=== PATIENT | male | born 1970 | race Caucasian/White ===

== ENCOUNTER 2020-08-24 14:56 | Outpatient (REF) | payer OTHER, SELFPAY ==
[2020-08-24 16:25] LABS: MANUAL DIFF FLAG NO
[2020-08-24 16:30] LABS: Basophils Percent Auto 0.3 % (0-2); Eosinophils Percent Auto 0.4 % (0-4); Hematocrit 47.4 % (42-52); Hemoglobin 16.7 g/dl (14.0-18.0); Imm Gran Abs Auto 0.04 X10*3/uL (0.00-0.03); Imm Gran Pct Auto 0.4 % (0.0-0.4); Lymphocytes Absolute Auto 2.1 X10*3/uL (1.2-4.9); Lymphocytes Percent Auto 21.5 % (20-40); Mean Corpuscular HGB Conc 35.2 g/dl (31.0-36.0); Mean Corpuscular Hemoglobin 36.7 pg (27.0-33.0); Mean Corpuscular Volume 104.2 fL (80-98); Mean Platelet Volume 10.6 fL (9.4-12.4); Monocytes Absolute Auto 0.5 X10*3/uL (0.1-1.2); Monocytes Percent Auto 5.2 % (2-11); Neutrophils Absolute Auto 7.2 X10*3/uL (2.0-8.3); Neutrophils Percent Auto 72.2 % (45-73); Platelet Count 239 X10*3/uL (160-400); Red Blood Count 4.55 X10*6/uL (4.60-5.80); Red Cell Distribution Width 12.7 % (11.0-16.0)
[2020-08-25 16:11] LABS: Absolute CD3 Count 1979 cells/uL (840-3060); Absolute CD4 Count 678 cells/uL (490-1740); Absolute CD8 Count 1299 cells/uL (180-1170); Absolute Lymphocytes 2258 cells/uL (850-3900); CD4 CD8 Ratio 0.52 (0.86-5.00); Percent CD3 Cells 88 % (57-85); Percent CD4 Cells 30 % (30-61); Percent CD8 Cells 58 % (12-42)
[2020-08-26 15:42] LABS: HIV RNA PCR Qn Copies <20 NOT DETECTED copies/mL (NOT DETECTED); HIV RNA PCR Qn Log Copies <1.30 NOT DETECTED (NOT DETECTED)
== END 2020-08-24 14:57 | disposition home or self-care (01) ==
LOC: HO.LAB 14:56
PROVIDERS: Visit Provider Internal Medicine Infectious Disease
DX: B20 Human immunodeficiency virus [HIV] disease (principal)
CPT/HCPCS: 36415; 85025; 86359; 86360; 87536

== ENCOUNTER 2020-11-07 16:57 | Outpatient (REF) | payer OTHER, SELFPAY ==
[2020-11-07 18:11] LABS: Cholesterol 120 mg/dL; HDL Cholesterol 40 mg/dL; LDL Cholesterol Calculated 51 mg/dl; Triglycerides 148 mg/dL
[2020-11-07 18:31] LABS: SARS COV2 IgG Negative (Negative)
[2020-11-07 18:39] LABS: Vitamin B12 457 pg/mL (200-900)
[2020-11-08 03:56] LABS: Estimated Average Glucose 97 mg/dL
== END 2020-11-07 16:58 | disposition home or self-care (01) ==
LOC: HO.LAB 16:57
PROVIDERS: PCP Family Medicine; Visit Provider Family Medicine
DX: B20 Human immunodeficiency virus [HIV] disease (principal); I25.10 Atherosclerotic heart disease of native coronary artery without angina pectoris; Z87.09 Personal history of other diseases of the respiratory system
CPT/HCPCS: 80061; 82607; 83036; 86769

== ENCOUNTER 2022-05-18 14:42 | Outpatient (REF) | payer OTHER, SELFPAY ==
[2022-05-18 15:16] LABS: MANUAL DIFF FLAG NO
[2022-05-18 15:32] LABS: Basophils Percent Auto 0.7 % (0-2); Eosinophils Percent Auto 0.5 % (0-4); Hematocrit 39.4 % (42.0-52.0); Hemoglobin 14.5 g/dl (14.0-18.0); Imm Gran Abs Auto 0.02 X10*3/uL (0.00-0.03); Imm Gran Pct Auto 0.3 % (0.0-0.4); Lymphocytes Absolute Auto 1.9 X10*3/uL (1.2-4.9); Lymphocytes Percent Auto 32.2 % (20-40); Mean Corpuscular HGB Conc 36.8 g/dl (31.0-36.0); Mean Corpuscular Hemoglobin 36.7 pg (27.0-33.0); Mean Corpuscular Volume 99.7 fL (80.0-98.0); Mean Platelet Volume 9.8 fL (9.4-12.4); Monocytes Absolute Auto 0.4 X10*3/uL (0.1-1.2); Monocytes Percent Auto 6.2 % (2-11); Neutrophils Absolute Auto 3.6 x10*3/uL (2.0-8.3); Neutrophils Percent Auto 60.1 % (45-73); Platelet Count 254 X10*3/uL (160-400); Red Blood Count 3.95 X10*6/uL (4.60-5.80); Red Cell Distribution Width 13.2 % (11.0-16.0)
[2022-05-18 16:02] LABS: Alanine Aminotransferase 29 U/L (0-40); Albumin Level 4.4 g/dL (3.5-5.0); Alkaline Phosphatase 94 U/L (39-117); Anion Gap 12 (12-20); Aspartate Amino Transferase 32 U/L (5-37); Blood Urea Nitrogen 12 mg/dL (9-16); Calcium 9.1 mg/dL (8.4-10.2); Carbon Dioxide 29 mmol/L (22-29); Chloride 102 mmol/L (96-108); Cholesterol 114 mg/dL; Estimated Glomerular Filt Rate > 60; Glucose Random 103 mg/dL (60-115); HDL Cholesterol 49 mg/dL; LDL Cholesterol Calculated 37 mg/dl; Potassium 3.9 mmol/L (3.3-5.1); Sodium 139 mmol/L (135-145); Total Protein 7.3 g/dL (6.5-8.0); Triglycerides 142 mg/dL
[2022-05-18 16:25] LABS: Syphilis Screen Nonreactive (Nonreactive)
[2022-05-18 16:29] LABS: Estimated Average Glucose 94 mg/dL; Hemoglobin A1C 115.6824 umol/L; Hemoglobin A1c % 4.9 %
[2022-05-18 17:08] LABS: Appearance Urine CLEAR; Color Urine YELLOW; Glucose Urine UA NEG (NEG); Leukocyte Esterase Urine NEG (NEG); Nitrite Urine NEG (NEG); Specific Gravity - Urine >= 1.030 (1.005-1.025); Urine Blood NEG (NEG); Urine Ketones NEG (NEG); Urine Protein TRACE MG/DL (NEG-TRACE)
[2022-05-19 04:32] LABS: CT PCR NOT DETECTED (Not Detect.); NG PCR NOT DETECTED (Not Detect.)
[2022-05-21 07:49] LABS: ~HepC Num1 0.08 S/CO (0.00-0.79); ~Hepatitis C Antibody Nonreactive (Nonreactive)
[2022-05-21 13:52] LABS: TS Negative Control Passed; TS Panel A 0; TS Panel B 0; TS Positive Control Passed; TSpotTB Negative (Negative)
[2022-05-22 13:26] LABS: HIV RNA PCR Qn Copies NOT DETECTED copies/mL (NOT DETECTED); HIV RNA PCR Qn Log Copies NOT DETECTED (NOT DETECTED)
== END 2022-05-18 14:43 | disposition home or self-care (01) ==
LOC: HO.LAB 14:42
PROVIDERS: Absent Provider Nurse Practitioner Family; PCP Nurse Practitioner; Visit Provider Internal Medicine
DX: B20 Human immunodeficiency virus [HIV] disease (principal); I25.10 Atherosclerotic heart disease of native coronary artery without angina pectoris
CPT/HCPCS: 80053; 80061; 81003; 83036; 85025; 86481; 86780; 86803; 87491; 87536; 87591

== ENCOUNTER 2023-07-30 15:50 | Outpatient (AMB) | payer OTHER, SELFPAY ==
--- NOTE | 2023-07-30 16:16 | AM.OFFWIN_ITS ---
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 [phone] Intake Note: pt is here for c/o mouth infection, right side of face is swollen Patient Tobacco Use Status: Current someday Tobacco user Allergies bee pollen [BEE STINGS] Allergy (Unknown, Verified 08/03/23 08:25) UNKNOWN ibuprofen [IBUPROFEN] Allergy (Unknown, Verified 08/03/23 08:25) UNK Medication List - Last Reconciled 08/03/23 by Juve Boucher MD aspirin 81 mg PO DAILY atorvastatin 80 mg PO DAILY vpdhnssot-nhzzhbeo-tgciplf ala 50-200-25 mg (Biktarvy) 1 tab PO DAILY carvedilol 12.5 mg PO BID cephalexin 500 mg PO BID omeprazole 20 mg PO DAILY sacubitril-valsartan 49-51 mg (Entresto) 1 tab PO BID Do you need a note to return to daycare/school/sports/work: Yes 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 Patient is having a painful lesion on his cheek and mouth. He has very poor oral hygiene. He is having difficulty swallowing because of the pain. Patient is also HIV positive and his viral count is negligible. PFSH Social History Patient Tobacco Use Status: Current someday Tobacco user Physical Exam Vital Signs: Last Vital Signs Temp 97.9 F 07/30/23 16:24 Pulse 72 07/30/23 16:24 BP 140/78 H 07/30/23 16:24 Pulse Ox 98 07/30/23 16:24 Const General: cooperative and healthy appearing Nutritional Appearance: well nourished Orientation/consciousness: patient oriented x3 Limitations: no limitations HEENT Head: Yes normal to inspection Eyes General: appearance normal, both eyes and all related structures Neck Neck: Yes normal visual inspection Chest Chest palpation & inspection: normal palpation of entire chest wall Resp Effort & Inspection: normal respiratory effort Skin Other: Face: Right side of his cheek is swollen and tender to touch. Oral cavity: Right side of the gum is swollen and tender. Neuro General: patient oriented x3 Assessment & Plan Assessment & Plan (1) Cellulitis, face: Code(s): L03.211 - Cellulitis of face Plan: Antibiotics called in. If symptoms do not improve to follow-up here. Medications: New cephalexin 500 mg PO BID 14 caps 0RF Coding Level of Care Code New Pt Level 3 (26627) Diagnoses Cellulitis, face L03.211
[2023-07-30 16:24] VITALS: BP 140/78; PULSE 72; TEMP 36.6; O2SAT 98
== END 2023-07-30 16:53 | disposition home or self-care (01) ==
PROVIDERS: PCP Nurse Practitioner; Visit Provider Internal Medicine
DX: L03.211 Cellulitis of face (principal)
CPT/HCPCS: 99203

== ENCOUNTER 2023-12-05 14:19 | Outpatient (REF) | payer OTHER, SELFPAY ==
[2023-12-05 14:57] LABS: MANUAL DIFF FLAG NO
[2023-12-05 15:33] LABS: Basophils Absolute Auto 0.1 X10*3/uL (0.0-0.2); Eosinophils Absolute Auto 0.1 X10*3/uL (0.0-0.4); Hematocrit 47.8 % (42.0-52.0); Hemoglobin 17.7 g/dl (14.0-18.0); Imm Gran Abs Auto 0.02 X10*3/uL (0.00-0.03); Imm Gran Pct Auto 0.3 % (0.0-0.4); Lymphocytes Absolute Auto 1.7 X10*3/uL (1.2-4.9); Lymphocytes Percent Auto 27.6 % (20-40); Mean Corpuscular Hemoglobin 38.2 pg (27.0-33.0); Mean Corpuscular Volume 103.2 fL (80.0-98.0); Mean Platelet Volume 9.9 fL (9.4-12.4); Monocytes Absolute Auto 0.4 X10*3/uL (0.1-1.2); Monocytes Percent Auto 6.1 % (2-11); Neutrophils Absolute Auto 3.9 x10*3/uL (2.0-8.3); Platelet Count 269 X10*3/uL (160-400); Red Blood Count 4.63 X10*6/uL (4.60-5.80); Red Cell Distribution Width 15.1 % (11.0-16.0)
[2023-12-05 15:48] LABS: Estimated Average Glucose 88 mg/dL; Hemoglobin A1c % 4.7 % (<6.0)
[2023-12-05 16:04] LABS: Anion Gap 13 (12-20); Blood Urea Nitrogen 10 mg/dL (9-16); Calcium 9.5 mg/dL (8.4-10.2); Carbon Dioxide 26 mmol/L (22-29); Chloride 106 mmol/L (96-108); Cholesterol 172 mg/dL (<200); Estimated Glomerular Filt Rate > 60; Glucose Random 113 mg/dL (60-115); HDL Cholesterol 38 mg/dL (>40); LDL Cholesterol Calculated 87 mg/dL (<100); Potassium 3.2 mmol/L (3.3-5.1); Sodium 142 mmol/L (135-145); Triglycerides 239 mg/dL (<150)
[2023-12-05 16:07] LABS: Alanine Aminotransferase 32 U/L (0-40); Albumin Level 4.1 g/dL (3.5-5.0); Alkaline Phosphatase 86 U/L (39-117); Anion Gap 13 (12-20); Aspartate Amino Transferase 26 U/L (5-37); Bilirubin Total 1.1 mg/dL (0.0-1.0); Blood Urea Nitrogen 10 mg/dL (9-16); Calcium 9.6 mg/dL (8.4-10.2); Carbon Dioxide 27 mmol/L (22-29); Chloride 105 mmol/L (96-108); Cholesterol 178 mg/dL (<200); Estimated Glomerular Filt Rate > 60; Glucose Random 112 mg/dL (60-115); HDL Cholesterol 38 mg/dL (>40); LDL Cholesterol Calculated 92 mg/dL (<100); Potassium 3.1 mmol/L (3.3-5.1); Sodium 142 mmol/L (135-145); Total Protein 7.4 g/dL (6.5-8.0); Triglycerides 240 mg/dL (<150)
[2023-12-05 16:58] LABS: Reflex LDLD? No
[2023-12-06 07:32] LABS: ~HepC Num1 0.08 S/CO (0.00-0.79); ~Hepatitis C Antibody Nonreactive (Nonreactive)
[2023-12-06 10:33] LABS: Absolute CD3 Count 1559 cells/uL (840-3060); Absolute CD4 Count 634 cells/uL (490-1740); Absolute CD8 Count 929 cells/uL (180-1170); Absolute Lymphocytes 1730 cells/uL (850-3900); CD4 CD8 Ratio 0.68 (0.86-5.00); Percent CD3 Cells 90 % (57-85); Percent CD4 Cells 37 % (30-61); Percent CD8 Cells 54 % (12-42)
[2023-12-06 12:53] LABS: RPR Rapid Plasma Reagin NON-REACTIVE (NON-REACTIVE)
[2023-12-07 14:13] LABS: HIV RNA PCR Qn Copies NOT DETECTED copies/mL (NOT DETECTED); HIV RNA PCR Qn Log Copies NOT DETECTED (NOT DETECTED)
[2023-12-07 23:28] LABS: TS Negative Control Passed; TS Panel A 0; TS Panel B 0; TS Positive Control Passed; TSpotTB Negative (Negative)
== END 2023-12-05 14:20 | disposition home or self-care (01) ==
LOC: HO.LAB 14:19
PROVIDERS: Referring Provider Nurse Practitioner Family; Visit Provider Student in an Organized Health Care Education/Training Program
DX: B20 Human immunodeficiency virus [HIV] disease (principal); I25.10 Atherosclerotic heart disease of native coronary artery without angina pectoris
CPT/HCPCS: 36415; 80048; 80053; 80061; 83036; 85025; 86359; 86360; 86481; 86592; 86803; 87536

== ENCOUNTER 2023-12-13 16:31 | Outpatient (REF) | payer OTHER, SELFPAY ==
[2023-12-13 18:18] LABS: Alanine Aminotransferase 42 U/L (0-40); Albumin Level 4.2 g/dL (3.5-5.0); Alkaline Phosphatase 87 U/L (39-117); Anion Gap 12 (12-20); Aspartate Amino Transferase 32 U/L (5-37); Blood Urea Nitrogen 14 mg/dL (9-16); Calcium 9.4 mg/dL (8.4-10.2); Carbon Dioxide 25 mmol/L (22-29); Chloride 106 mmol/L (96-108); Estimated Glomerular Filt Rate > 60; Glucose Random 112 mg/dL (60-115); Potassium 3.6 mmol/L (3.3-5.1); Sodium 139 mmol/L (135-145); Total Protein 7.6 g/dL (6.5-8.0)
[2023-12-13 18:32] LABS: TSH reflex Free T4 0.61 uIU/mL (0.32-4.0)
[2023-12-13 18:42] LABS: Folate 2.3 ng/mL (> or = 4.0); Vitamin B12 650 pg/mL (200-900)
== END 2023-12-13 16:32 | disposition home or self-care (01) ==
LOC: HO.LAB 16:31
PROVIDERS: PCP Student in an Organized Health Care Education/Training Program; Visit Provider Student in an Organized Health Care Education/Training Program
DX: E87.6 Hypokalemia (principal); D75.89 Other specified diseases of blood and blood-forming organs
CPT/HCPCS: 36415; 80053; 82607; 82746; 83735; 84443

== ENCOUNTER 2024-05-28 16:26 | Outpatient (REF) | payer MEDICARE, SELFPAY ==
[2024-05-28 17:30] LABS: MANUAL DIFF FLAG NO
[2024-05-28 17:33] LABS: Basophils Percent Auto 0.7 % (0-2); Eosinophils Absolute Auto 0.1 X10*3/uL (0.0-0.4); Hematocrit 41.1 % (42.0-52.0); Hemoglobin 14.8 g/dl (14.0-18.0); Imm Gran Abs Auto 0.02 X10*3/uL (0.00-0.03); Imm Gran Pct Auto 0.3 % (0.0-0.4); Lymphocytes Absolute Auto 1.8 X10*3/uL (1.2-4.9); Lymphocytes Percent Auto 29.4 % (20-40); Mean Corpuscular Hemoglobin 34.9 pg (27.0-33.0); Mean Corpuscular Volume 96.9 fL (80.0-98.0); Mean Platelet Volume 10.2 fL (9.4-12.4); Monocytes Absolute Auto 0.4 X10*3/uL (0.1-1.2); Monocytes Percent Auto 5.8 % (2-11); Neutrophils Absolute Auto 3.8 x10*3/uL (2.0-8.3); Neutrophils Percent Auto 62.8 % (45-73); Platelet Count 244 X10*3/uL (160-400); Red Blood Count 4.24 X10*6/uL (4.60-5.80); Red Cell Distribution Width 12.9 % (11.0-16.0); White Blood Count 6.1 X10*3/uL (4.8-10.8)
[2024-05-28 18:02] LABS: Alanine Aminotransferase 19 U/L (0-40); Albumin Level 4.3 g/dL (3.5-5.0); Alkaline Phosphatase 83 U/L (39-117); Anion Gap 15 (12-20); Aspartate Amino Transferase 22 U/L (5-37); Bilirubin Total 1.2 mg/dL (0.0-1.0); Blood Urea Nitrogen 11 mg/dL (9-16); Calcium 9.6 mg/dL (8.4-10.2); Carbon Dioxide 25 mmol/L (22-29); Chloride 105 mmol/L (96-108); Estimated Glomerular Filt Rate > 60; Glucose Random 109 mg/dL (60-115); Potassium 3.8 mmol/L (3.3-5.1); Sodium 141 mmol/L (135-145); Total Protein 7.2 g/dL (6.5-8.0)
[2024-06-01 13:38] LABS: HIV RNA PCR Qn Copies NOT DETECTED copies/mL (NOT DETECTED); HIV RNA PCR Qn Log Copies NOT DETECTED (NOT DETECTED)
[2024-06-01 20:13] LABS: Absolute CD3 Count 1485 cells/uL (840-3060); Absolute CD4 Count 619 cells/uL (490-1740); Absolute CD8 Count 890 cells/uL (180-1170); Absolute Lymphocytes 1662 cells/uL (850-3900); Percent CD3 Cells 89 % (57-85); Percent CD4 Cells 37 % (30-61); Percent CD8 Cells 54 % (12-42)
== END 2024-05-28 16:27 | disposition home or self-care (01) ==
LOC: HO.HHCL 16:26
PROVIDERS: Visit Provider Internal Medicine
DX: B20 Human immunodeficiency virus [HIV] disease (principal)
CPT/HCPCS: 36415; 80053; 85025; 86359; 86360; 87536

== ENCOUNTER 2024-09-11 14:42 | Outpatient (AMB) | payer MEDICARE, SELFPAY ==
--- NOTE | 2024-09-11 14:51 | AM.OFFWIN_ITS ---
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 Patient Tobacco Use Status: Current someday Tobacco user Allergies bee pollen [BEE STINGS] Allergy (Unknown, Verified 09/11/24 14:52) UNKNOWN ibuprofen [IBUPROFEN] Allergy (Unknown, Verified 09/11/24 14:52) UNK Medication List - Last Reconciled 09/11/24 by Jose Gonzales MD aspirin 81 mg PO DAILY atorvastatin 80 mg PO DAILY gpuaarnhy-jawilafq-wvbeicl ala 50-200-25 mg (Biktarvy) 1 tab PO DAILY carvedilol 12.5 mg PO BID omeprazole 20 mg PO DAILY sacubitril-valsartan 49-51 mg (Entresto) 1 tab PO BID Do you need a note to return to daycare/school/sports/work: No HPI 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 HPI Details Patient is a 54-year-old gentleman with a history of AIDS came in today to be evaluated for possible tooth infection Patient says that he has advance gum disease And need new teeth However he does not want dentures For the past few days he has been having pain in 1 of the upper incisors On examination patient does have swollen gums He the only antibiotic he can tolerate is cephalexin, Seven day worth of antibiotic sent with 1 refill if needed But I strongly recommend that he sees the dentist Review system revealed fever no chills no sore throat No nausea no vomiting PFSH Social History Patient Tobacco Use Status: Current someday Tobacco user Review of Systems Const All systems reviewed & are unremarkable except as noted in HPI and below Physical Exam Vital Signs: Last Vital Signs Temp 98.2 F 09/11/24 14:53 Pulse 68 09/11/24 14:53 BP 140/80 H 09/11/24 14:53 Pulse Ox 97 09/11/24 14:53 Oxygen Delivery Method Room Air 09/11/24 14:53 Const General: no acute distress Orientation/consciousness: patient oriented x3 HEENT Other: Swollen gums lost enamel multiple teeth Eyes General: appearance normal, both eyes and all related structures Resp Effort & Inspection: normal respiratory effort and able to speak in complete sentences Neuro General: patient oriented x3 Psych Mental Status: mental status grossly normal Assessment & Plan Assessment & Plan (1) Tooth infection: Code(s): K04.7 - Periapical abscess without sinus Plan Patient is a 54-year-old gentleman with a history of AIDS came in today to be evaluated for possible tooth infection Patient says that he has advance gum disease And need new teeth However he does not want dentures For the past few days he has been having pain in 1 of the upper incisors On examination patient does have swollen gums He the only antibiotic he can tolerate is cephalexin, Seven day worth of antibiotic sent with 1 refill if needed But I strongly recommend that he sees the dentist Review system revealed fever no chills no sore throat No nausea no vomiting Medications: Changed From cephalexin 500 mg PO BID 14 caps 0RF To cephalexin 500 mg PO BID 14 caps 1RF 7 days Coding Level of Care Code Est Pt Level 3 (91611) Diagnoses Tooth infection K04.7
[2024-09-11 14:53] VITALS: BP 140/80; PULSE 68; TEMP 36.8; O2SAT 97
== END 2024-09-11 15:51 | disposition home or self-care (01) ==
PROVIDERS: PCP Student in an Organized Health Care Education/Training Program; Visit Provider Internal Medicine
DX: K04.7 Periapical abscess without sinus (principal)

== ENCOUNTER → 2024-09-11 14:42 | Outpatient (BNVA) | payer MEDICARE, SELFPAY | PROVIDERS: PCP Student in an Organized Health Care Education/Training Program; Visit Provider Internal Medicine | DX: K04.7 Periapical abscess without sinus (principal) | CPT/HCPCS: 99212 ==

== ENCOUNTER 2025-07-29 14:30 | Outpatient (REF) | payer OTHER, SELFPAY ==
--- OUTSIDE RECORDS SUMMARY | 2025-07-29 16:17 | XMS_ITS | Encounter Summary ---
Author Organization [facility] Address [address] [place] [address] Phone Care Team Providers Care Music Box Mechanic Name Role Phone Shanel Almanzar MD Primary Care Provider + Encounter Details Date Type Department Care Team (Late st Contact Info) Description 01/29/2018 Ancillary Orders [facility] [address] [facility] 3rd Floor, [address] [place] [address] Celestine Muniz MD [address] [place] [id number] Social History Tobacco Use Types Packs/Day Years Used Date Smoking Tobacco: Every Day Cigarettes Smokeless Tobacco: Never Sex and Gender Information Value Date Recorded Sex Assigned at Male 07/29/2018 5:37 PM EDT Legal Sex Male 9:35 PM EDT Gender Identity Male 07/29/2018 5:37 PM EDT Sexual Orientation Choose not to disclose 2017 5:37 PM EDT documented as of this encounter Plan of Treatment Not on file documented as of this encounter Visit Diagnoses Not on filedocumented in this encounter Care Teams Music Box Mechanic Relationship Specialty Start Date End Date Shanel Almanzar MD PCP - General Internal Medicine 12/23/17 documented as of this encounter Additional Source Comments The information contained in this document represents components of the legal health record. It is not the complete legal health record.[facility]
--- OUTSIDE RECORDS SUMMARY | 2025-07-29 16:17 | XMS_ITS | Clinical Summary ---
Author Organization [facility] Address [address] [facility] [address] [place] [phone] Phone Care Team Providers Care Plasterer Tender Name Role Phone Shanel Almanzar MD Primary Care Provider + Allergies Active Allergy Reactions Criticality Noted Date Comments Ibuprofen Unknown 01/08/2018 Taking aspirin Medications zolpidem (AMBIEN) 10 mg tablet 1 tablet at bedtime 1 Active emtricitabine-ri lpivirine-tenofo vir alafenamide (ODEFSEY) 200-25-25 mg tablet Take 1 tablet by mouth daily. Active atorvastatin (LIPITOR) 80 MG tablet Take 80 mg by mouth daily. Active aspirin 81 MG EC tablet Take 81 mg by mouth daily. Active lisinopril (PRINIVIL,ZESTRI L) 2.5 MG tablet Take 2.5 mg by mouth daily. Active ipratropium-albu terol (COMBIVENT RESPIMAT) 20-100 mcg/actuation Mist Inhale 1 puff into the lungs 4 (four) times a day. Active triamcinolone acetonide 0.1 % ointment Apply topically 2 (two) times a day. Active acetaminophen (TYLENOL) 325 mg tablet Take 2 tablets (650 mg total) by mouth every 4 (four) hours as needed for mild pain. 0 8 Active docusate sodium (COLACE) 100 MG capsule Take 1 capsule (100 mg total) by mouth 2 (two) times a day. 8 Active oxyCODONE 5 MG immediate release tabletIndication s:Rectal pain Take 1-2 tablets (5-10 mg total) by mouth every 4 (four) hours as needed for moderate pain. Pt. may request partial fill Earliest Fill Date: 03/27/18 15 tablet 8 Active magnesium hydroxide (MOM) 400 mg/5 mL SuspIndications: Rectal pain Take 30 mL (2,400 mg total) by mouth nightly as needed. 118 mL 8 Active sulfamethoxazole -trimethoprim (BACTRIM) 400-80 mg per tablet Take 1 tablet by mouth daily. Active efavirenz-emtric tabine-tenofovir DF (ATRIPLA) 600-200-300 mg per tablet Take 1 tablet by mouth nightly. Active emtricitabine-ri lpivirine-tenofo vir (COMPLERA) 200-25-300 mg Tab Take 1 tablet by mouth nightly. Active carvedilol (COREG) 12.5 MG tablet Take 12.5 mg by mouth 2 (two) times a day with meals. Active prasugrel (EFFIENT) 10 mg Tab 10 mg daily. Active predniSONE (DELTASONE) 50 MG tablet Take 1 tablet (50 mg total) by mouth daily with breakfast. 5 tablet 8 Active Active Problems Problem Noted Date Diagnosed Date Chronic obstructive pulmonary disease 01/09/2018 Family History Medical History Relation Comments Colon cancer Father Relation Status Comments Father Social History Tobacco Use Types Packs/Day Years Used Date Smoking Tobacco: Every Day Cigarettes 1 35 Smokeless Tobacco: Never Alcohol Use Standard Drinks/Week Comments Yes 1 (1 standard drink = 0.6 oz pur e alcohol) once every two weeks Education Answer Date Recorded Are you interested in more education? Not on lópez e 03/08/2023 Are you concerned about learning? Not on file 03/08/2023 No 03/08/2023 No 03/08/2023 Digital Access Answer Date Recorded No 04/06/2023 No 04/06/2023 No 04/06/2023 Reliable internet access at home? Not on file 04/06/2023 Device with a working camera? Not on file Sex and Gender Information Value Date Recorded Sex Assigned at Male 07/29/2018 5:37 PM EDT Legal Sex Male 9:35 PM EDT Gender Identity Male 07/29/2018 5:37 PM EDT Sexual Orientation Choose not to disclose 2017 5:37 PM EDT Last Filed Vital Signs Vital Sign Reading Time Taken Comments Blood Pressure 138/94 07/29/2018 5:36 PM EDT Pulse 70 07/29/2018 9:54 PM EDT Temperature 37.2 C (98.9 F) 07/29/2018 5:36 PM EDT Respiratory Rate 18 07/29/2018 9:54 PM EDT Oxygen Saturation 93% 07/29/2018 9:48 PM EDT Inhaled Oxygen Concentration - - Weight 108.9 kg (240 lb 1.3 oz) 07/29/2018 5:36 PM EDT Height 188 cm (6' 2 ) 03/10/2018 1:14 PM EDT Body Mass Index 30.82 03/10/2018 1:14 PM EDT Plan of Treatment Health Maintenance Due Date Last Done Comments Adult Td,Tdap Booster 1970 LIPID PANEL 1970 DEPRESSION SCREENING 1982 SMOKING Hx and SMOKELESS TOBACCO SCREENING 1983 HEPATITIS C SCREENING 1988 HIV ONE-TIME SCREENING (18-6 5 YEARS) 1988 COLOGUARD 2015 COLONOSCOPY 2015 COLORECTAL CANCER SCREENING 2015 FIT TEST 2015 FOBT 2015 SIGMOIDOSCOPY 2015 VIRTUAL COLONOSCOPY 2015 CREATININE LEVEL 07/29/2019 07/29/2018 POTASSIUM LEVEL 07/29/2019 07/29/2018 PNEUMOCOCCAL VACCINES (50+ years) (2 of 2 - PPSV23) 03/17/2020 01/21/2020 ZOSTER VACCINES (1 of 2) 2020 INFLUENZA VACCINE (#1) 2025 COVID-19 VACCINE (3 2024-2 6 season) 2025 02/10/2021, 01/20/2021 HEPATITIS A VACCINES Aged Out No long er eligible based on patient's age to complete this topic HIB VACCINES Aged Out No longer eligi ble based on patient's age to complete this topic MENINGOCOCCAL VACCINES (ACWY) Aged Out No longer eligible based on patient's age to complete this topic MENINGOCOCCAL VACCINES (B) Aged Out N o longer eligible based on patient's age to complete this topic Medical Devices Implanted Type Area Sales Support Representative Device Identifier Shelf Expiration Date Model / Serial / Lot Cardiac Stents Procedures Procedure Name Priority Date/Time Associated Diagnosis Comments BASIC METABOLIC PANEL STAT 07/29/2018 7:11 PM EDT from Last 3 Months or Most Recently Relevant to Health Maintenance Results * (ABNORMAL) Basic metabolic panel (07/29/2018 7:11 PM EDT) SODIUM 136 133 - 146 mmol/L [facility] CHLORIDE 100 96 - 108 mmol/L [facility] POTASSIUM 4.3 3.3 - 5.1 mmol/L [facility] CO2 22 21 - 35 mmol/L [facility] BUN 11 6 - 19 mg/dL [facility] CREATININE 0.90 0.5 - 1.5 mg/dL [facility] GLUCOSE 102(H) 70 - 99 mg/dL [facility] CALCIUM 9.5 8.4 - 10.3 mg/dL [facility] EGFR 101 >59 mL/min/1.7 3m2 [facility] Comment:If patient is black, multiply result by 1.159. Estimated glomerular filtration rate calculated using the CKD-EPI equation. ANION GAP 18 10 - 20 mmol/L [facility] Blood 07/29/2018 7:11 PM EDT 07/29/2018 7:18 PM EDT us Yossi Brambila MD LAB BLOOD ORDERABLES Final Resu lt [facility] [address] [place] [address] from Last 3 Months or Most Recently Relevant to Health Maintenance Insurance [facility] ONE CARE MEDICARE REPLACEMENT JACK VARELA [id number] [place] [address] CARE MEDICARE REPLACEMENT [facility] MEDICARE REPLACEMENT [facility] MEDICARE REPLACEMENT [facility] ONE CARE MEDICARE REPLACEMENT Advance Directives For more information, please contact: [phone] (9AM - 5PM [facility], Saturday-Saturday) * Full Code (Presumed) (Latest Code Status on File) Date Activated Date Inactivated Comments 03/24/2018 9:52 AM 03/25/2018 4:09 AM Care Teams Plasterer Tender Relationship Specialty Start Date End Date Shanel Almanzar MD PCP - General Internal Medicine 12/23/17 Additional Source Comments The information contained in this document represents components of the legal health record. It is not the complete legal health record.[facility]
--- OUTSIDE RECORDS SUMMARY | 2025-07-29 16:17 | XMS_ITS | Encounter Summary ---
Author Organization [facility] Address [address] [place] [address] Phone Care Team Providers Care Waterproofer Helper Name Role Phone Shanel Almanzar MD Primary Care Provider + Encounter Details Date Type Department Care Team (Late st Contact Info) Description 06/18/2018 Ancillary Orders [facility] [address] [place] [address] Paige Ibrahim MD [address] [place] [address] Social History Tobacco Use Types Packs/Day Years Used Date Smoking Tobacco: Every Day Cigarettes 1 35 Smokeless Tobacco: Never Alcohol Use Standard Drinks/Week Comments Yes 1 (1 standard drink = 0.6 oz pur e alcohol) once every two weeks Sex and Gender Information Value Date Recorded [...] on filedocumented in this encounter Care Teams Waterproofer Helper Relationship Specialty Start Date End Date Shanel Almanzar MD PCP - General Internal Medicine 12/23/17 documented as of this encounter Additional Source Comments The information contained in this document represents components of the legal health record. It is not the complete legal health record.[facility]
--- OUTSIDE RECORDS SUMMARY | 2025-07-29 16:17 | XMS_ITS | Encounter Summary ---
Author Organization [facility] Address [address] [place] [address] Phone Care Team Providers Care Armed Security Guard Name Role Phone Shanel Almanzar MD Primary Care Provider + Encounter Details Date Type Department Care Team (Latest Contact Info) Description 06/18/2018 Ancillary Orders [facility] [address] [place] [address] Paige Ibrahim MD [address] [address] Ventricular ectopy Social History Tobacco Use Types Packs/Day Years [...] on file documented as of this encounter Results * Holter Monitor 24 Hours (06/18/2018 12:22 PM EDT) Anatomical Region Laterality Modality Heart Other Narrative 06/18/2018 1:19 PM EDT 24-hour monitor: No symptoms reported. Baseline rhythm is sinus with a minimum heart rate of 51 maximum 95 average 67 bpm. There are occasional PACs and brief runs of atrial tachycardia. There is a mild increase in the frequency of PVCs, about 1100 during the 24 hours, primarily uniform morphology and primarily single PVCs or bigeminy. Occasional couplets. Brief runs of accelerated idioventricular rhythm. Impression: Abnormal 24-hour monitor. No symptoms reported. Increased frequency PVCs, about 1100 during the 24 hours. us Paige Ibrahim MD CV CARDIAC SERVICES ORDERABLE S Final Result documented in this encounter Visit Diagnoses Diagnosis Ventricular ectopy Other premature beats Ventricular ectopy Other premature beats documented in this encounter Care Teams Armed Security Guard Relationship Specialty Start Date End Date Shanel Almanzar MD PCP - General Internal Medicine 12/23/17 documented as of this encounter Additional Source Comments The information contained in this document represents components of the legal health record. It is not the complete legal health record.[facility]
--- OUTSIDE RECORDS SUMMARY | 2025-07-29 16:17 | XMS_ITS | Encounter Summary ---
Author Organization [facility] Address [address] [facility] [address] [facility] [place] [address] Phone Care Team Providers Care Nurse Practitioner Physician Assistant Name Role Phone Shanel Almanzar MD Primary Care Provider + Encounter Details Date Type Department Care Team (Late st Contact Info) Description 03/24/2018 Procedure [place] Admitting Dept - Virtual Department [address] [place] [address] Social History Tobacco Use Types Packs/Day Years [...] on filedocumented in this encounter Care Teams Nurse Practitioner Physician Assistant Relationship Specialty Start Date End Date Shanel Almanzar MD PCP - General Internal Medicine 12/23/17 documented as of this encounter Additional Source Comments The information contained in this document represents components of the legal health record. It is not the complete legal health record.[facility]
--- OUTSIDE RECORDS SUMMARY | 2025-07-29 16:17 | XMS_ITS | Encounter Summary ---
Author Organization [facility] Address [address] [place] [address] Phone Care Team Providers Care Employee Wellness/Fitness Coordinator Name Role Phone Shanel Almanzar MD Primary Care Provider + Encounter Details Date Type Department Care Team (Latest Contact Info) Description 01/29/2018 Ancillary Orders [facility] [address] [place] [address] [place] [address] Celestine Muniz MD [address] [place] [id number] [email or web address] Palpitations; Cardiomyopathy, unspecified type Social History Tobacco Use Types Packs/Day Years [...] of this encounter Results * Holter Monitor 48 Hours (01/29/2018 10:40 AM EDT) Anatomical Region Laterality Modality Heart Other Narrative 01/29/2018 12:43 PM EDT Holter monitor of good quality recorded for 48 hours. Baseline rhythm is sinus with an average heart rate of 76 and a range of 58-112. There is occasional supraventricular ectopy including a single 7 beat run in the 120s. There is very frequent ventricular ectopy. The majority occurred during bigeminal cycles and would appear represent at least 2 different morphologies. There are frequent short runs of 3-9 beats ranging from the high 90s to rates over 200 no diary is submitted. 46% of all QRS complexes appear to be of ventricular origin. Impression: 48 hour Holter monitor demonstrating sinus rhythm with occasional supraventricular and very frequent ventricular ectopy including frequent short runs of ventricular tachycardia. No diary was submitted. us Celestine Muniz MD CV CARDIAC SERVICES ORDERABLES F inal Result documented in this encounter Visit Diagnoses Diagnosis Palpitations Cardiomyopathy, unspecified type Palpitations Cardiomyopathy, unspecified type documented in this encounter Care Teams Employee Wellness/Fitness Coordinator Relationship Specialty Start Date End Date Shanel Almanzar MD PCP - General Internal Medicine 12/23/17 documented as of this encounter Additional Source Comments The information contained in this document represents components of the legal health record. It is not the complete legal health record.[facility]
[2025-07-29 17:35] LABS: Alanine Aminotransferase 23 U/L (0-40); Albumin Level 4.3 g/dL (3.5-5.0); Alkaline Phosphatase 79 U/L (39-117); Anion Gap 10 (12-20); Aspartate Amino Transferase 32 U/L (5-37); Blood Urea Nitrogen 13 mg/dL (9-16); Calcium 9.0 mg/dL (8.4-10.2); Carbon Dioxide 31 mmol/L (22-29); Chloride 106 mmol/L (96-108); Cholesterol 107 mg/dL (<200); Estimated Glomerular Filt Rate > 60; HDL Cholesterol 50 mg/dL (>40); Sodium 144 mmol/L (135-145); Total Protein 6.9 g/dL (6.5-8.0); Triglycerides 168 mg/dL (<150)
[2025-07-29 18:41] LABS: Reflex LDLD? No
[2025-07-29 19:03] LABS: Imm Gran Abs Auto 0.01 X10*3/uL (0.00-0.03); Imm Gran Pct Auto 0.9 % (0.0-0.4); Lymphocytes Absolute Auto 0.4 X10*3/uL (1.2-4.9); MANUAL DIFF FLAG SCAN; Mean Corpuscular HGB Conc 36.6 g/dl (31.0-36.0); Mean Corpuscular Hemoglobin 37.1 pg (27.0-33.0); Mean Corpuscular Volume 101.4 fL (80.0-98.0); NRBC Abs Auto 0.000 X10*3/uL (0.0-0.012); NRBC Pct Auto 0.0 /100WBC (0.0-0.2); SCAN SMEAR FLAG 1
[2025-07-29 19:04] LABS: Hematocrit 35.5 % (42.0-52.0); Hemoglobin 13.0 g/dl (14.0-18.0); Red Blood Count 3.50 X10*6/uL (4.60-5.80); White Blood Count 5.5 X10*3/uL (4.8-10.8)
[2025-07-29 19:05] LABS: Platelet Count 235 X10*3/uL (160-400)
[2025-07-29 19:22] LABS: Potassium 2.7 mmol/L (3.3-5.1)
[2025-07-30 08:42] LABS: HBS Num1 0.00 mIU/mL (0-7.99); HBc Num1 0.05 S/CO (0.00-0.79); HBsAGNum1 0.40 S/CO (0.00-0.99); Hepatitis B Surface Antigen Negative (Negative); ~HepC Num1 0.09 S/CO (0.00-0.79); ~Hepatitis B Surface Antibody NONREACTIVE (Nonreactive); ~Hepatitis C Antibody Nonreactive (Nonreactive)
[2025-07-30 09:29] LABS: ~Hepatitis A Antibody IgG 5.40 S/CO (0.00-0.99)
[2025-07-30 09:39] LABS: Syphilis Screen Nonreactive (Nonreactive)
[2025-07-30 15:33] LABS: HIV RNA PCR Qn Copies 75 copies/mL (NOT DETECTED); HIV RNA PCR Qn Log Copies 1.88 (NOT DETECTED)
[2025-08-03 03:08] LABS: TS Negative Control Passed; TS Panel A 0; TS Panel B 0; TS Positive Control Passed; TSpotTB Negative (Negative)
[2025-08-04 15:58] LABS: Absolute CD3 Count 1675 cells/uL (840-3060); Absolute CD8 Count 980 cells/uL (180-1170); Percent CD3 Cells 90 % (57-85); Percent CD8 Cells 53 % (12-42)
== END 2025-07-29 14:31 | disposition home or self-care (01) ==
LOC: HO.LAB 14:30
PROVIDERS: Visit Provider Internal Medicine
DX: Z11.59 Encounter for screening for other viral diseases (principal); Z13.6 Encounter for screening for cardiovascular disorders; Z21 Asymptomatic human immunodeficiency virus [HIV] infection status
CPT/HCPCS: 80053; 80061; 85025; 86359; 86360; 86481; 86704; 86706; 86708; 86780; 86803; 87340; 87536

== ENCOUNTER 2025-08-17 14:51 | Outpatient (REF) | payer OTHER, SELFPAY ==
[2025-08-17 15:43] LABS: Potassium 2.8 mmol/L (3.3-5.1)
--- OUTSIDE RECORDS SUMMARY | 2025-08-17 18:09 | XMS_ITS | Clinical Summary ---
Author Organization [facility] Address [address] [facility] [address] [place] [address] Phone Care Team Providers Care Television Audio Engineer Name Role Phone Shanel Almanzar MD Primary [...] this topic Medical Devices Implanted Type Area Melter Caster Device Identifier Shelf Expiration Date Model / Serial / Lot Cardiac Stents Procedures Procedure Name Priority Date/Time Associated Diagnosis Comments BASIC METABOLIC PANEL STAT 07/29/2018 7:11 PM EDT from Last 3 Months or Most Recently Relevant to Health Maintenance Results * (ABNORMAL) Basic metabolic panel (07/29/2018 7:11 PM EDT) SODIUM 136 133 - 146 mmol/L [facility] CHLORIDE 100 96 - 108 mmol/L [facility] POTASSIUM 4.3 3.3 - 5.1 mmol/L [facility] CO2 22 21 - 35 mmol/L [facility] BUN 11 6 - 19 mg/dL [facility] CREATININE 0.90 0.5 - 1.5 mg/dL [facility] GLUCOSE 102(H) 70 - 99 mg/dL [facility] CALCIUM 9.5 8.4 - 10.3 mg/dL [facility] EGFR 101 >59 mL/min/1.7 3m2 [facility] Comment:If patient is black, multiply result by 1.159. Estimated glomerular filtration rate calculated using the CKD-EPI equation. ANION GAP 18 10 - 20 mmol/L [facility] Blood 07/29/2018 7:11 PM EDT 07/29/2018 7:18 PM EDT us Yossi Brambila MD LAB BLOOD ORDERABLES Final Resu lt [facility] [address] [place] [address] from Last 3 Months or Most Recently Relevant to Health Maintenance Insurance [facility] ONE CARE MEDICARE REPLACEMENT JACK VAERLA [id number] [place] [address] CARE MEDICARE REPLACEMENT [facility] CARE MEDICARE REPLACEMENT [facility] CARE MEDICARE REPLACEMENT [facility] ONE CARE MEDICARE REPLACEMENT Advance Directives For more information, please contact: [phone] (9AM - 5PM [facility], Saturday-Saturday) * Full Code (Presumed) (Latest Code Status on File) Date Activated Date Inactivated Comments 03/24/2018 9:52 AM 03/25/2018 4:09 AM Care Teams Television Audio Engineer Relationship Specialty Start Date End Date Shanel Almanzar MD PCP - General Internal Medicine 12/23/17 Additional Source Comments The information contained in this document represents components of the legal health record. It is not the complete legal health record.[facility]
--- OUTSIDE RECORDS SUMMARY | 2025-08-17 18:09 | XMS_ITS | Encounter Summary ---
Author Organization [facility] Address [address] [place] [address] Phone Care Team Providers Care Sales Department Supervisor Name Role Phone Shanel Almanzar MD Primary Care Provider + Encounter Details Date Type Department Care Team (Late st Contact Info) Description 06/18/2018 Ancillary Orders [facility] [address] [place] [address] Paige Ibrahim MD [address] [place] [phone] Social History Tobacco Use Types Packs/Day Years [...] on filedocumented in this encounter Care Teams Sales Department Supervisor Relationship Specialty Start Date End Date Shanel Almanzar MD PCP - General Internal Medicine 12/23/17 documented as of this encounter Additional Source Comments The information contained in this document represents components of the legal health record. It is not the complete legal health record.[facility]
--- OUTSIDE RECORDS SUMMARY | 2025-08-17 18:09 | XMS_ITS | Encounter Summary ---
Author Organization [facility] Address [address] [place] [address] Phone Care Team Providers Care Unclaimed Property Manager Name Role Phone Shanel Almanzar MD Primary Care Provider + Encounter Details Date Type Department Care Team (Late st Contact Info) Description 01/29/2018 Ancillary Orders [facility] [address] [facility] 3rd Floor, [address] [place] [address] Celestine Muniz MD [address] [place] [address] Social History Tobacco Use Types Packs/Day Years [...] on filedocumented in this encounter Care Teams Unclaimed Property Manager Relationship Specialty Start Date End Date Shanel Almanzar MD PCP - General Internal Medicine 12/23/17 documented as of this encounter Additional Source Comments The information contained in this document represents components of the legal health record. It is not the complete legal health record.[facility]
--- OUTSIDE RECORDS SUMMARY | 2025-08-17 18:09 | XMS_ITS | Encounter Summary ---
Author Organization [facility] Address [address] [place] [address] Phone Care Team Providers Care Security Patrol Driver Name Role Phone Shanel Almanzar MD Primary Care Provider + Encounter Details Date Type Department Care Team (Late st Contact Info) Description 03/24/2018 Procedure [place] Admitting Dept - Virtual Department [address] [place] [address] Social History Tobacco Use Types Packs/Day Years [...] on filedocumented in this encounter Care Teams Security Patrol Driver Relationship Specialty Start Date End Date Shanel Almanzar MD PCP - General Internal Medicine 12/23/17 documented as of this encounter Additional Source Comments The information contained in this document represents components of the legal health record. It is not the complete legal health record.[facility]
--- OUTSIDE RECORDS SUMMARY | 2025-08-17 18:09 | XMS_ITS | Encounter Summary ---
Author Organization [facility] Address [address] [place] [address] Phone Care Team Providers Care Adon Name Role Phone Shanel Almanzar MD Primary Care Provider + Encounter Details Date Type Department Care Team (Latest Contact Info) Description 06/18/2018 Ancillary Orders [facility] [address] [place] [address] Paige Ibrahim MD [address] [phone] Ventricular ectopy Social History Tobacco Use Types [...] beats documented in this encounter Care Teams Adon Relationship Specialty Start Date End Date Shanel Almanzar MD PCP - General Internal Medicine 12/23/17 documented as of this encounter Additional Source Comments The information contained in this document represents components of the legal health record. It is not the complete legal health record.[facility]
--- OUTSIDE RECORDS SUMMARY | 2025-08-17 18:09 | XMS_ITS | Encounter Summary ---
Author Organization [facility] Address [address] [place] [address] Phone Care Team Providers Care Caregiver Assisted Living Name Role Phone Shanel Almanzar MD Primary Care Provider + Encounter Details Date Type Department Care Team (Latest Contact Info) Description 01/29/2018 Ancillary Orders [facility] [address] [place] [address] [place] [address] Celestine Muniz MD [address] [place] [phone] [email or web address] Palpitations; Cardiomyopathy, unspecified type Social [...] type documented in this encounter Care Teams Caregiver Assisted Living Relationship Specialty Start Date End Date Shanel Almanzar MD PCP - General Internal Medicine 12/23/17 documented as of this encounter Additional Source Comments The information contained in this document represents components of the legal health record. It is not the complete legal health record.[facility]
== END 2025-08-17 14:52 | disposition home or self-care (01) ==
LOC: HO.LAB 14:51
PROVIDERS: Visit Provider Internal Medicine
DX: E87.6 Hypokalemia (principal)
CPT/HCPCS: 36415; 84132

== ENCOUNTER 2025-08-30 15:16 | Outpatient (REF) | payer OTHER, SELFPAY ==
[2025-08-30 17:00] LABS: Potassium 3.7 mmol/L (3.3-5.1)
--- OUTSIDE RECORDS SUMMARY | 2025-08-30 19:30 | XMS_ITS | Encounter Summary ---
Author Organization [facility] Address [address] [place] [address] Phone Care Team Providers Care Manager Of Employee Relations Name Role Phone Shanel Almanzar MD Primary Care Provider + Encounter Details Date Type Department Care Team (Late st Contact Info) Description 01/29/2018 Ancillary Orders [facility] [address] [facility] 3rd Floor, [address] [place] [address] Celestine Muniz MD [address] [place] [address] Social History Tobacco Use Types Packs/Day Years [...] on filedocumented in this encounter Care Teams Manager Of Employee Relations Relationship Specialty Start Date End Date Shanel Almanzar MD PCP - General Internal Medicine 12/23/17 documented as of this encounter Additional Source Comments The information contained in this document represents components of the legal health record. It is not the complete legal health record.[facility]
--- OUTSIDE RECORDS SUMMARY | 2025-08-30 19:30 | XMS_ITS | Clinical Summary ---
Author Organization [facility] Address [address] [facility] [address] [place] [address] Phone Care Team Providers Care Golf Technician Name Role Phone Shanel Almanzar MD Primary [...] (2 of 2 - PPSV23) 03/17/2020 01/21/2020 RSV VACCINE (1 - Risk 50-74 years 1-dose series) 2020 ZOSTER VACCINES (1 of 2) 2020 INFLUENZA VACCINE (#1) 2025 COVID-19 VACCINE (3 - 2024-2 6 season) 2025 02/10/2021, 01/20/2021 HEPATITIS [...] this topic Medical Devices Implanted Type Area Music Journalist Device Identifier Shelf Expiration Date Model / [...] [facility] [address] [place] [address] from Last 3 Months or Most Recently Relevant to Health Maintenance Insurance [facility] [employer] MEDICARE REPLACEMENT [facility] MEDICARE REPLACEMENT [facility] CARE MEDICARE REPLACEMENT [facility] ONE CARE MEDICARE REPLACEMENT [facility] [employer] CARE MEDICARE REPLACEMENT Advance Directives For more information, please contact: [phone] (9AM - 5PM [facility], Saturday-Saturday) * Full Code (Presumed) (Latest Code Status on File) Date Activated Date Inactivated Comments 03/24/2018 9:52 AM 03/25/2018 4:09 AM Care Teams Golf Technician Relationship Specialty Start Date End Date Shanel Almanzar MD PCP - General Internal Medicine 12/23/17 Additional Source Comments The information contained in this document represents components of the legal health record. It is not the complete legal health record.[facility]
--- OUTSIDE RECORDS SUMMARY | 2025-08-30 19:30 | XMS_ITS | Encounter Summary ---
Author Organization [facility] Address [address] [place] [address] Phone Care Team Providers Care Leaf Sticker Name Role Phone Shanel Almanzar MD Primary Care Provider + Encounter Details Date Type Department Care Team (Latest Contact Info) Description 06/18/2018 Ancillary Orders [facility] [address] [place] [address] Paige Ibrahim MD [address] [address] Ventricular ectopy Social History Tobacco Use Types [...] beats documented in this encounter Care Teams Leaf Sticker Relationship Specialty Start Date End Date Shanel Almanzar MD PCP - General Internal Medicine 12/23/17 documented as of this encounter Additional Source Comments The information contained in this document represents components of the legal health record. It is not the complete legal health record.[facility]
--- OUTSIDE RECORDS SUMMARY | 2025-08-30 19:30 | XMS_ITS | Encounter Summary ---
Author Organization [facility] Address [address] [place] [address] Phone Care Team Providers Care Wood Tile Installer Name Role Phone Shanel Almanzar MD Primary Care Provider + Encounter Details Date Type Department Care Team (Latest Contact Info) Description 01/29/2018 Ancillary Orders [facility] [address] [place] [address] [place] [address] Celestine Muniz MD [address] [place] [phone] [email or web address] Palpitations; Cardiomyopathy, unspecified type Social [...] type documented in this encounter Care Teams Wood Tile Installer Relationship Specialty Start Date End Date Shanel Almanzar MD PCP - General Internal Medicine 12/23/17 documented as of this encounter Additional Source Comments The information contained in this document represents components of the legal health record. It is not the complete legal health record.[facility]
--- OUTSIDE RECORDS SUMMARY | 2025-08-30 19:30 | XMS_ITS | Encounter Summary ---
Author Organization [facility] Address [address] [place] [address] Phone Care Team Providers Care Cork Mixer Name Role Phone Shanel Almanzar MD Primary Care Provider + Encounter Details Date Type Department Care Team (Late st Contact Info) Description 06/18/2018 Ancillary Orders [facility] [address] [place] [address] Paige Ibrahim MD [address] [place] [address] Social History Tobacco Use Types Packs/Day Years [...] on filedocumented in this encounter Care Teams Cork Mixer Relationship Specialty Start Date End Date Shanel Almanzar MD PCP - General Internal Medicine 12/23/17 documented as of this encounter Additional Source Comments The information contained in this document represents components of the legal health record. It is not the complete legal health record.[facility]
--- OUTSIDE RECORDS SUMMARY | 2025-08-30 19:30 | XMS_ITS | Encounter Summary ---
Author Organization [facility] Address [address] [place] [address] Phone Care Team Providers Care Jawbone Puller Name Role Phone Shanel Almanzar MD Primary Care Provider + Encounter Details Date Type Department Care Team (Late st Contact Info) Description 03/24/2018 Procedure [place] Admitting Dept - Virtual Department [address] [place] [address] Social History Tobacco Use Types Packs/Day Years [...] on filedocumented in this encounter Care Teams Jawbone Puller Relationship Specialty Start Date End Date Shanel Almanzar MD PCP - General Internal Medicine 12/23/17 documented as of this encounter Additional Source Comments The information contained in this document represents components of the legal health record. It is not the complete legal health record.[facility]
== END 2025-08-30 15:17 | disposition home or self-care (01) ==
LOC: HO.LAB 15:16
PROVIDERS: Visit Provider Internal Medicine
DX: E87.6 Hypokalemia (principal)
CPT/HCPCS: 36415; 84132